=== PATIENT | female | born 1980 | race Hispanic/Latino ===

== ENCOUNTER 2023-11-15 14:49 | Observation (INO) | payer OTHER, SELFPAY ==
[2023-11-15 15:28] LABS: #Basophils 0.04 10x3/uL (0.0-0.2); #Eosinphils Less than 0.03 10x3/uL (0.0-0.7); %Basophils 0.4 % (0.0-1.0); %Eosinophils 0.2 % (0.0-10.0); %Lymphocytes 14.8 % (21.0-51.0); %Monocytes 4.8 % (0.0-10.0); %Neutrophils 79.5 % (42.0-75.0); Hematocrit 38.8 % (36.0-47.0); Hemoglobin 12.1 g/dL (12.0-16.0); Mean Corpuscular HGB CONC 31.2 g/dL (32.0-36.0); Platelet Count 401 10x3/uL (130-400); RBC Distribution Width 15.5 % (11.5-14.5); Red Blood Cell (RBC) Count 5.04 mill/uL (4.20-5.40)
[2023-11-15] MEDS ORDERED: Ondansetron PF 4 MG/2 ML Vial ONE (15:37)
[2023-11-15] MEDS ORDERED: Ketorolac Tromethamine 30 MG (1 mL) VIAL ONE (15:37)
[2023-11-15 16:06] LABS: Globulin 4.1 g/dL (2.4-3.5)
[2023-11-15 16:10] LABS: ALT (SGPT) 262 U/L (8-55); AST (SGOT) 181 U/L (5-34); Albumin 3.7 g/dL (3.5-5.0); Alkaline Phosphatase 259 U/L (40-110); Anion Gap 16 mmol/L (10-20); BUN (Urea Nitrogen) 8 mg/dL (7.0-18.7); Bilirubin, Total 2.6 mg/dL (0.2-1.2); Calc. Creatinine Clearance 0 mL/min (70-130); Calcium 9.8 mg/dL (7.8-10.44); Carbon Dioxide 24 mmol/L (22-29); Chloride 104 mmol/L (98-107); Estimated GFR 112; Glucose 121 mg/dL (70-105); Lipase 13 U/L (8-78); Potassium 3.8 mmol/L (3.5-5.1); Protein, Total 7.8 g/dL (6.0-8.3); Sodium 140 mmol/L (136-145)
[2023-11-15 17:54] LABS: Bacteria/HPF 4+ HPF (None Seen); Bilirubin Negative (Negative); Blood, Urine Negative (Negative); CAUTI Indications for Culture Pelvic or flank pain; Calcium Oxalate Crystals Rare HPF (None Seen); Clarity Turbid (Clear); Glucose, Urine (Dipstick) Normal (Negative); Ketone, Urine 40 mg/dL (Negative); Leukocyte 250 Leu/uL (Negative); Nitrite Negative (Negative); Protein, Urine (Dipstick) 10 mg/dL (Neg-Trace); RBC/HPF 0-3 HPF (0-3); Specific Gravity, Urine 1.018 (1.002-1.036)
[2023-11-15 17:55] LABS: Urine Culture Reflex No No
[2023-11-15] MEDS ORDERED: cefTRIAXone (ROCEPHIN) 2 GM VIAL ONE (18:18)
[2023-11-15] MEDS ORDERED: Sodium Chloride 0.9% 100 ML ONE (18:18)
[2023-11-15 18:33] LABS: Pregnancy Test - Urine (BHCG) Negative (Negative); Pregu Control Background? CLEAR/WHITE (CLR/WHITE); Pregu Control Bar Appear? YES (CONTROL BAR); Specific Gravity 1.018 (1.002-1.036)
[2023-11-15] MEDS ORDERED: Ondansetron PF 4 MG/2 ML Vial IVP PRN (19:59)
[2023-11-15] MEDS ORDERED: Ipratropium/Albuterol 3 ML NEB NEB PRN (19:59)
[2023-11-15] MEDS ORDERED: Morphine 2 MG/ML VIAL SLOW IVP PRN (19:59)
[2023-11-15] MEDS ORDERED: traMADol HCl 50 MG TAB PO PRN (20:01)
[2023-11-15] MEDS: Acetaminophen 325 MG TAB PO SCH (21:26)
[2023-11-15] MEDS: Sodium Chloride 0.9% 1,000 ML IV SCH (21:26)
[2023-11-15] MEDS: Famotidine/PF 20 mg/2ml Vial SLOW IVP SCH (21:27)
[2023-11-15 22:04] VITALS: BMI 40.4
[2023-11-15] MEDS: traMADol HCl 50 MG TAB PO SCH (23:24)
[2023-11-16 05:06] LABS: #Basophils 0.05 10x3/uL (0.0-0.2); %Basophils 0.6 % (0.0-1.0); %Eosinophils 1.4 % (0.0-10.0); %Lymphocytes 28.4 % (21.0-51.0); %Monocytes 6.7 % (0.0-10.0); %Neutrophils 62.5 % (42.0-75.0); Hematocrit 34.6 % (36.0-47.0); Hemoglobin 10.7 g/dL (12.0-16.0); Mean Corpuscular HGB CONC 30.9 g/dL (32.0-36.0); Mean Corpuscular Hemoglobin 23.3 pg (27.0-31.0); Mean Corpuscular Volume 75.4 fL (78.0-98.0); Mean Platelet Volume 10.1 fL (7.4-10.4); Platelet Count 326 10x3/uL (130-400); RBC Distribution Width 15.5 % (11.5-14.5); Red Blood Cell (RBC) Count 4.59 mill/uL (4.20-5.40)
[2023-11-16 05:41] LABS: INR-International Normal Ratio 1.1; PTT 32.4 sec (22.9-36.1); Prothrombin Time 13.8 sec (12.0-14.7)
[2023-11-16 05:46] LABS: ALT (SGPT) 196 U/L (8-55); AST (SGOT) 110 U/L (5-34); Alkaline Phosphatase 207 U/L (40-110); Anion Gap 13 mmol/L (10-20); BUN (Urea Nitrogen) 6 mg/dL (7.0-18.7); Bilirubin, Direct 0.5 mg/dL (0.1-0.3); Bilirubin, Total 1.4 mg/dL (0.2-1.2); Calc. Creatinine Clearance 232 mL/min (70-130); Calcium 8.6 mg/dL (7.8-10.44); Carbon Dioxide 20 mmol/L (22-29); Chloride 111 mmol/L (98-107); Estimated GFR 118; Glucose 82 mg/dL (70-105); Potassium 3.4 mmol/L (3.5-5.1); Protein, Total 6.1 g/dL (6.0-8.3); Sodium 141 mmol/L (136-145)
[2023-11-16] MEDS ORDERED: Glucagon 1 MG/ML KIT ONE (13:46)
[2023-11-16] MEDS ORDERED: Bupivacaine 0.25% HCL 30 ML VIAL ONE (13:47)
[2023-11-16] MEDS ORDERED: Iopamidol 30 ML ONE (13:47)
[2023-11-16] MEDS ORDERED: EPINEPHrine 1 MG/ML VIAL ONE (13:47)
[2023-11-16] MEDS ORDERED: Scopolamine 1 mg/72 hour Patch ONE (13:51)
[2023-11-16] MEDS ORDERED: LevoFLOXacin D5W 500 mg (100 mL) BAG ONE (13:51)
[2023-11-16] MEDS ORDERED: Ketorolac Tromethamine 30 MG (1 mL) VIAL ONE (13:51)
[2023-11-16] MEDS ORDERED: PROPOFOL 20 ML ONE (14:02)
[2023-11-16] MEDS ORDERED: fentaNYL PF 100 MCG/2 ML SYRINGE ONE ×2 (14:02→16:42)
[2023-11-16] MEDS ORDERED: Lidocaine 1% PF 5 ML VIAL ONE (14:02)
[2023-11-16] MEDS ORDERED: Rocuronium Bromide 10 MG/ML (10ML VIAL) ONE (14:02)
[2023-11-16] MEDS ORDERED: SUGAMMADEX SODIUM 200 MG/2 ML VIAL ONE (15:32)
[2023-11-16] MEDS ORDERED: traMADol HCl 50 MG TAB PO PRN (16:10)
[2023-11-16] MEDS: Acetaminophen 500 MG TAB PO SCH (18:12)
[2023-11-16] MEDS: Potassium Chloride 20 MEQ in Lactated Ringer's 1,000 ML IV SCH (18:20)
[2023-11-16] MEDS: Ketorolac Tromethamine 30 MG (1 mL) VIAL IVP SCH (18:21)
[2023-11-16] MEDS: Enoxaparin 40 MG (0.4 mL) SYRINGE SC SCH (20:47)
[2023-11-17 05:21] LABS: #Basophils 0.04 10x3/uL (0.0-0.2); %Basophils 0.4 % (0.0-1.0); %Eosinophils 0.3 % (0.0-10.0); %Lymphocytes 17.6 % (21.0-51.0); %Monocytes 6.5 % (0.0-10.0); Hemoglobin 10.1 g/dL (12.0-16.0); Mean Corpuscular HGB CONC 31.6 g/dL (32.0-36.0); Mean Corpuscular Hemoglobin 23.7 pg (27.0-31.0); Mean Corpuscular Volume 75.1 fL (78.0-98.0); Mean Platelet Volume 10.2 fL (7.4-10.4); Platelet Count 294 10x3/uL (130-400); RBC Distribution Width 15.5 % (11.5-14.5); Red Blood Cell (RBC) Count 4.26 mill/uL (4.20-5.40)
[2023-11-17 05:41] LABS: ALT (SGPT) 171 U/L (8-55); AST (SGOT) 101 U/L (5-34); Albumin 2.9 g/dL (3.5-5.0); Alkaline Phosphatase 177 U/L (40-110); Anion Gap 14 mmol/L (10-20); BUN (Urea Nitrogen) 5 mg/dL (7.0-18.7); Bilirubin, Total 1.5 mg/dL (0.2-1.2); Calc. Creatinine Clearance 217 mL/min (70-130); Calcium 8.7 mg/dL (7.8-10.44); Carbon Dioxide 20 mmol/L (22-29); Chloride 109 mmol/L (98-107); Estimated GFR 116; Glucose 71 mg/dL (70-105); Potassium 3.7 mmol/L (3.5-5.1); Protein, Total 5.9 g/dL (6.0-8.3); Sodium 139 mmol/L (136-145)
[2023-11-17] MEDS: Pantoprazole DR 40 MG TAB PO SCH (07:26)
[2023-11-17] MEDS ORDERED: Midazolam HCl 2 mg/2 ml Vial ONE (09:00)
[2023-11-17] MEDS ORDERED: fentaNYL PF 100 MCG/2 ML SYRINGE ONE (10:07)
[2023-11-17] MEDS ORDERED: PROPOFOL 20 ML ONE (10:07)
[2023-11-17] MEDS ORDERED: Lidocaine 1% PF 5 ML VIAL ONE (10:10)
[2023-11-17] MEDS ORDERED: Rocuronium Bromide 10 MG/ML (10ML VIAL) ONE (10:10)
[2023-11-17] MEDS ORDERED: Indomethacin 50 MG SUPP ONE (10:22)
[2023-11-17] MEDS ORDERED: Iopamidol 30 ML ONE (10:23)
[2023-11-17] MEDS ORDERED: Ketorolac Tromethamine 30 MG (1 mL) VIAL ONE (10:45)
[2023-11-17] MEDS ORDERED: Ondansetron PF 4 MG/2 ML Vial ONE (10:45)
[2023-11-17] MEDS ORDERED: Dexamethasone 4 mg/ml Vial ONE (10:45)
[2023-11-17] MEDS ORDERED: Glycopyrrolate 0.2 MG/ML 5 ML SYRINGE ONE (10:58)
[2023-11-17] MEDS ORDERED: NEOSTIGMINE 3 MG/3 ML SYR 3 MG/3 ML SYRINGE ONE (10:58)
[2023-11-17] MEDS ORDERED: Promethazine HCl 25 MG/ML VIAL IM PRN (11:16)
[2023-11-17] MEDS ORDERED: Ondansetron HCl/PF 4 MG/2 ML Vial IVP PRN (11:16)
[2023-11-17] MEDS: LevoFLOXacin 500 mg/D5W 500 MG in Premix 1 BAG IVPB SCH (13:20)
[2023-11-17 14:05] VITALS: TEMP 97.4
[2023-11-17 16:55] VITALS: BP 103/69
== END 2023-11-17 16:30 | disposition home or self-care (01) ==
LOC: ERS 14:49 → MSONC 20:01
PROVIDERS: ADMIT Surgery; ATTEND Surgery
PROC: 0FT44ZZ Resection of Gallbladder, Percutaneous Endoscopic Approach (ICD-10-PCS; principal; 2023-11-17)
PROC: 0FC98ZZ Extirpation of Matter from Common Bile Duct, Via Natural or Artificial Opening Endoscopic (ICD-10-PCS; 2023-11-17)
DX: K80.66 Calculus of gallbladder and bile duct with acute and chronic cholecystitis without obstruction (principal); E66.9 Obesity, unspecified; R79.89 Other specified abnormal findings of blood chemistry
CPT/HCPCS: 36415; 47532; 76705; 80048; 80053; 80076; 81001; 81025; 83690; 85025; 85610; 85730; 88304; 96372; 96375; 96376; C1889; G0378; J0171; J0665; J0696; J1100; J1611; J1650; J1885; J1956; J2250; J2405; J2704; J3480; J3490; J7050; J7120; Q9967; S0028